=== PATIENT | male | born 1960 | race Caucasian/White ===

== ENCOUNTER → 2019-10-20 | Outpatient (CLI) | payer OTHER, MEDICAID ==
[~2019-10-20] MED LIST: ACET-2708 PO; METF-415 PO
== END | disposition home or self-care (01) ==
LOC: LAB 10:03
PROVIDERS: ATTEND Specialist
DX: Z01.818 Encounter for other preprocedural examination (principal); Z11.59 Encounter for screening for other viral diseases
CPT/HCPCS: C9803; U0003